=== PATIENT | male | born 2005 | race Caucasian/White ===

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

== ENCOUNTER 2024-01-01 09:56 | Emergency (ER) | payer MEDICAID ==
[~2024-01-01] VITALS: Ht 170.2 cm; Wt 65.0 kg
[~2024-01-01 09:56] MED LIST: CETI10CA2 MT; CIPHCO RIGHT EAR; MOXI3DRO12 RIGHTEYE
[2024-01-01 10:12] VITALS: O2SAT 98
[2024-01-01 11:24] LABS: MONOTEST NEGATIVE (NEGATIVE)
[2024-01-01] MEDS: DEXAMETHASONE 10 MG/ML VIAL PO ONE (11:31)
[2024-01-01] MEDS: IBUPROFEN 100MG/5ML UDC PO ONE (11:31)
[2024-01-01 13:55] VITALS: BP 122/71; PULSE 96; RESP 18; TEMP 36.72516; O2SAT 98
== END 2024-01-01 14:29 | disposition home or self-care (01) ==
LOC: ER 09:56
DX: J03.90 Acute tonsillitis, unspecified (principal)
CPT/HCPCS: 99283; 87430; 86308; 87070; J1100